=== PATIENT | female | born 1960 | race Caucasian/White ===

== ENCOUNTER 2024-07-09 11:36 | Outpatient (CLI) | payer MEDICAID ==
[~2024-07-09 11:36] MED LIST: DICL100G15 TOP
== END 2024-07-09 23:59 | disposition home or self-care (01) ==
LOC: RAD 11:36
PROVIDERS: ATTEND Nurse Practitioner Family
DX: R39.14 Feeling of incomplete bladder emptying (principal)
CPT/HCPCS: 76705